=== PATIENT | female | born 1995 | race African-American/Black ===

== ENCOUNTER 2021-07-21 19:20 | Emergency (ER) | payer OTHER ==
[~2021-07-21] VITALS: Ht 185.4 cm; Wt 86.0 kg
[2021-07-21] MEDS ORDERED: KETOROLAC 60MG/2ML VIAL IM ONE (20:00)
[2021-07-21] MEDS ORDERED: METHOCARBAMOL 750MG TABLET PO SCH (20:00)
[2021-07-21] MEDS ORDERED: LIDOCAINE 5% PATCH TOP SCH (20:00)
[2021-07-21 20:35] VITALS: BP 124/68
[2021-07-21] MEDS ORDERED: LIDO1ADH23 TP (20:52)
[2021-07-21] MEDS ORDERED: METH-653 MT (20:52)
[2021-07-21] MEDS ORDERED: IBUP-2028 MT (20:52)
== END 2021-07-21 21:14 | disposition home or self-care (01) ==
LOC: ER 19:20
DX: S13.4XXA Sprain of ligaments of cervical spine, initial encounter (principal); V49.49XA Driver injured in collision with other motor vehicles in traffic accident, initial encounter; Y93.89 Activity, other specified; Y92.89 Other specified places as the place of occurrence of the external cause; Y99.8 Other external cause status
CPT/HCPCS: 96372; 99283; J1885